=== PATIENT | male | born 1960 | race African-American/Black ===

== ENCOUNTER 2022-11-16 00:09 | Inpatient (IN) | payer BC ==
[~2022-11-16] VITALS: Ht 175.3 cm; Wt 124.7 kg
[2022-11-16 03:29] LABS: BASOPHILS % 1.4 % (0.0-2.0); EOSINOPHILS % 0.6 % (0.0-5.0); HEMATOCRIT. 42.4 % (42.0-52.0); HEMOGLOBIN. 14.3 g/dL (14.0-18.0); LYMPHOCYTES % 44.1 % (20.0-50.0); MEAN CORPUSCULAR HEMOGLOBIN 28.2 pg (28.0-32.0); MEAN CORPUSCULAR VOLUME 83.6 fL (80.0-94.0); MEAN PLATELET VOLUME 8.5 fl (7.4-10.4); NEUTROPHILS % 43.9 % (40.0-76.0); PLATELET 228 x1000/uL (130-400); RED BLOOD CELL COUNT 5.07 mill/uL (4.7-6.1); RED CELL DISTRIBUTION WIDTH 15.2 % (11.6-14.6)
[2022-11-16 03:44] LABS: CHLORIDE 108 mEq/L (98-107)
[2022-11-16] MEDS ORDERED: ASPIRIN 81MG TABLET PO NR (04:15)
[2022-11-16 05:28] LABS: ETHANOL BLOOD 199 mg/dL
[2022-11-16 06:20] LABS: CLARITY URINE CLEAR (CLEAR); COLOR URINE YELLOW (YELLOW); KETONES URINE TRACE (NEGATIVE); LEUKOCYTE ESTERASE URINE NEGATIVE (NEGATIVE); NITRITE URINE NEGATIVE (NEGATIVE); OCCULT BLOOD URINE NEGATIVE (NEGATIVE); PH URINE 5.5 (4.5-8.0); PROTEIN URINE 2+ (NEGATIVE); SPECIFIC GRAVITY URINE 1.021 (1.005-1.030)
[2022-11-16 06:52] LABS: *AMPHETAMINES SCREEN URINE NEGATIVE (NEGATIVE); *BARBITURATES SCREEN URINE NEGATIVE (NEGATIVE); *BENZODIAZEPINES SCREEN URINE NEGATIVE (NEGATIVE); *COCAINE SCREEN URINE NEGATIVE (NEGATIVE); CANNABINOID URINE SCREEN NEGATIVE (NEGATIVE); METHADONE URINE SCREEN NEGATIVE (NEGATIVE); OPIATES URINE SCREEN NEGATIVE (NEGATIVE); PHENCYCLIDINE URINE SCREEN NEGATIVE (NEGATIVE)
[2022-11-16] MEDS ORDERED: NICARDIPINE 100MCG/ML 10ML VIAL (CATH LAB) IV ONE (09:00)
[2022-11-16] MEDS ORDERED: NITROGLYCERIN 50MCG/ML 10ML VIAL (CATH LAB) IV ONE (09:00)
[2022-11-16] MEDS ORDERED: ACETAMINOPHEN 325MG TABLET PO PRN ×3 (10:30→16:00)
[2022-11-16] MEDS ORDERED: CLONIDINE 0.1MG TABLET PO PRN (10:30)
[2022-11-16] MEDS ORDERED: ONDANSETRON HCL 4MG/2ML INJ IV PRN (10:30)
[2022-11-16] MEDS ORDERED: IPRATROPIUM/ALBUTEROL 0.5-3(2.5)MG/3ML NEB HHN PRN (10:30)
[2022-11-16] MEDS ORDERED: DOCUSATE SODIUM 100MG CAPSULE PO PRN (10:30)
[2022-11-16 12:00] VITALS: BP_SYST 138; BP_DIAS 94; BP_DIAS 97
[2022-11-16] MEDS ORDERED: DEXTROSE 50% WATER 50ML SYRINGE IV PRN (12:45)
[2022-11-16] MEDS: ENOXAPARIN 40MG/0.4ML SYR SUBCUT SCH (12:55)
[2022-11-16] MEDS ORDERED: HEPARIN 1000 UNITS/ML 10ML ONE (14:17)
[2022-11-16] MEDS ORDERED: IODIXANOL 320MG/ML 100 ML BOTTLE IV ONE (14:17)
[2022-11-16] MEDS ORDERED: MIDAZOLAM HCL 2 MG/2 ML VIAL ONE (14:18)
[2022-11-16] MEDS ORDERED: VERAPAMIL HCL 2.5 MG/1 ML 2ML VIAL IV ONE (14:18)
[2022-11-16] MEDS ORDERED: FENTANYL CITRATE/PF 50MCG/ML 2ML VIAL ONE (14:18)
[2022-11-16] MEDS ORDERED: DIPHENHYDRAMINE 50MG/ML VIAL ONE (14:18)
[2022-11-16] MEDS ORDERED: LIDOCAINE HCL/PF 2% 20MG/ML 5 ML/VIAL ONE (14:18)
[2022-11-16] MEDS ORDERED: HYDRALAZINE 20MG/ML VIAL ONE (14:53)
[2022-11-16] MEDS ORDERED: LABETALOL HCL 5MG/ML VIAL 20ML IV ONE (15:04)
[2022-11-16] MEDS ORDERED: ATROPINE SULFATE 1MG/10ML SYR IV PRN (16:00)
[2022-11-16] MEDS: AMLODIPINE 10MG TABLET PO SCH ×2 (16:00→19:48)
[2022-11-16 16:36] LABS: T4 FREE 0.83 ng/dL (0.76-1.46)
[2022-11-16] MEDS: BLOOD SUGAR DIAGNOSTIC STRIP TEST SCH ×2 (16:40→23:08)
[2022-11-16 16:42] LABS: CREATINE KINASE MB FRACTION 1.5 ng/mL (0.5-3.6)
[2022-11-16] MEDS ORDERED: LISI20TA31 PO (16:50)
[2022-11-16] MEDS ORDERED: CARV6.2548 PO (16:50)
[2022-11-16] MEDS: CARVEDILOL 6.25 MG TABLET PO SCH ×2 (17:00→19:50)
[2022-11-16] MEDS ORDERED: CARVEDILOL 6.25 MG TABLET PO SCH (17:00)
[2022-11-16] MEDS: INSULIN LISPRO 100 UNITS/ML SUBCUT SCH ×2 (17:06→23:14)
[2022-11-16] MEDS ORDERED: ATORVASTATIN CALCIUM 40MG TABLET PO SCH (21:00)
[2022-11-16] MEDS ORDERED: TEMAZEPAM 15MG CAPSULE PO PRN (22:45)
[2022-11-17] VITALS: BP 115/75
[2022-11-17 00:13] LABS: CREATINE KINASE MB FRACTION 1.4 ng/mL (0.5-3.6)
[2022-11-17 04:00] VITALS: BP 146/92
[2022-11-17] MEDS: BLOOD SUGAR DIAGNOSTIC STRIP TEST SCH ×2 (06:41→11:40)
[2022-11-17 07:02] LABS: HEMATOCRIT. 38.7 % (42.0-52.0); HEMOGLOBIN. 12.9 g/dL (14.0-18.0); MEAN CORPUSCULAR HEMOGLOBIN 27.8 pg (28.0-32.0); MEAN CORPUSCULAR VOLUME 83.8 fL (80.0-94.0); MEAN PLATELET VOLUME 9.1 fl (7.4-10.4); PLATELET 182 x1000/uL (130-400); RED BLOOD CELL COUNT 4.62 mill/uL (4.7-6.1); RED CELL DISTRIBUTION WIDTH 14.7 % (11.6-14.6)
[2022-11-17] MEDS: INSULIN LISPRO 100 UNITS/ML SUBCUT SCH (07:10)
[2022-11-17 07:16] LABS: CHLORIDE 103 mEq/L (98-107)
[2022-11-17 08:00] VITALS: BP 163/99
[2022-11-17] MEDS ORDERED: ASPIRIN 81MG TABLET PO SCH (09:00)
[2022-11-17] MEDS ORDERED: SPIRONOLACTONE 25MG TABLET PO SCH (09:00)
[2022-11-17] MEDS ORDERED: LISINOPRIL 20MG TABLET PO SCH (09:00)
[2022-11-17 09:04] VITALS: BP 163/99
[2022-11-17] MEDS: CARVEDILOL 6.25 MG TABLET PO SCH (09:06)
[2022-11-17] MEDS: AMLODIPINE 10MG TABLET PO SCH (09:07)
[2022-11-17 10:05] VITALS: BP 163/99
[2022-11-17 10:06] LABS: PLATELET ESTIMATE NORMAL
[2022-11-17] MEDS: ENOXAPARIN 40MG/0.4ML SYR SUBCUT SCH (11:00)
== END 2022-11-17 12:15 | disposition home or self-care (01) | DRG 281 ==
LOC: ER 00:09 → 7EST 06:39 → ENRESERV 08:36 → 7EST 10:26
PROVIDERS: ADMIT Internal Medicine Pulmonary Disease; ATTEND Internal Medicine Pulmonary Disease
PROC: 4A023N7 Measurement of Cardiac Sampling and Pressure, Left Heart, Percutaneous Approach (ICD-10-PCS; principal; 2022-11-16)
PROC: B211YZZ Fluoroscopy of Multiple Coronary Arteries using Other Contrast (ICD-10-PCS; 2022-11-16)
DX: I25.10 Atherosclerotic heart disease of native coronary artery without angina pectoris (principal); I21.A1 Myocardial infarction type 2; I16.1 Hypertensive emergency; I11.0 Hypertensive heart disease with heart failure; I50.9 Heart failure, unspecified; G47.33 Obstructive sleep apnea (adult) (pediatric); E11.9 Type 2 diabetes mellitus without complications; E78.5 Hyperlipidemia, unspecified; F10.10 Alcohol abuse, uncomplicated; Z98.84 Bariatric surgery status; Z86.73 Personal history of transient ischemic attack (TIA), and cerebral infarction without residual deficits; Z79.899 Other long term (current) drug therapy; Z91.199 Patient's noncompliance with other medical treatment and regimen due to unspecified reason; Y90.6 Blood alcohol level of 120-199 mg/100 ml
CPT/HCPCS: 36415; 71045; 80048; 80053; 80061; 80305; 80307; 80320; 80329; 81003; 82550; 82553; 82962; 83036; 83735; 83880; 84439; 84443; 84484; 85025; 93005; 93306; 93458; 99285; C1769; C1887; C1893; J0360; J1200; J1644; J1650; J2250; J3010; J3490; Q9967; G0480

== ENCOUNTER 2023-01-14 22:01 | Emergency (ER) | payer BC ==
[~2023-01-14] VITALS: Ht 177.8 cm; Wt 127.0 kg
[~2023-01-14 22:01] MED LIST: CARV6.2548 PO; LISI20TA31 PO
[2023-01-14 22:04] VITALS: O2SAT 98
[2023-01-15 00:09] LABS: BASOPHILS % 0.8 % (0.0-2.0); HEMATOCRIT. 40.2 % (42.0-52.0); HEMOGLOBIN. 12.7 g/dL (14.0-18.0); LYMPHOCYTES % 45.8 % (20.0-50.0); MEAN CORPUSCULAR HEMOGLOBIN 26.4 pg (28.0-32.0); MEAN CORPUSCULAR VOLUME 83.1 fL (80.0-94.0); MEAN PLATELET VOLUME 8.4 fl (7.4-10.4); MONOCYTES % 12.1 % (2.0-8.0); NEUTROPHILS % 40.3 % (40.0-76.0); PLATELET 184 x1000/uL (130-400); RED BLOOD CELL COUNT 4.84 mill/uL (4.7-6.1); RED CELL DISTRIBUTION WIDTH 16.3 % (11.6-14.6)
[2023-01-15 00:34] LABS: CHLORIDE 107 mEq/L (98-107)
[2023-01-15 03:55] VITALS: BP 156/96; PULSE 77; RESP 18; TEMP 98.6
== END 2023-01-15 03:57 | disposition home or self-care (01) ==
LOC: ER 22:01
DX: F43.9 Reaction to severe stress, unspecified (principal); R07.89 Other chest pain; I25.10 Atherosclerotic heart disease of native coronary artery without angina pectoris
CPT/HCPCS: 36415; 71045; 80053; 84484; 85025; 93005; 99285

== ENCOUNTER 2023-06-15 00:32 | Emergency (ER) | payer BC, OTHER ==
[~2023-06-15] VITALS: Ht 190.5 cm; Wt 118.0 kg
[2023-06-15 00:50] VITALS: BP 114/80; PULSE 62; RESP 18; TEMP 98.2; O2SAT 98
[2023-06-15] MEDS ORDERED: HYDROCODONE/ACETAMINOPHEN 5/325MG TABLET PO ONE (02:15)
[2023-06-15 02:53] LABS: BASOPHILS % 1.5 % (0.0-2.0); EOSINOPHILS % 0.5 % (0.0-5.0); HEMATOCRIT. 41.9 % (42.0-52.0); HEMOGLOBIN. 14.2 g/dL (14.0-18.0); MEAN CORPUSCULAR HEMOGLOBIN 28.3 pg (28.0-32.0); MEAN CORPUSCULAR HGB CONC 33.9 g/dL (31.0-37.0); MEAN CORPUSCULAR VOLUME 83.6 fL (80.0-94.0); MEAN PLATELET VOLUME 8.2 fl (7.4-10.4); MONOCYTES % 9.8 % (2.0-8.0); NEUTROPHILS % 68.2 % (40.0-76.0); PLATELET 262 x1000/uL (130-400); RED BLOOD CELL COUNT 5.02 mill/uL (4.7-6.1); RED CELL DISTRIBUTION WIDTH 16.1 % (11.6-14.6); WHITE BLOOD COUNT 6.7 x1000/uL (4.5-11.0)
[2023-06-15 03:04] LABS: CARBON DIOXIDE 26 mEq/L (21-32); CHLORIDE 100 mEq/L (98-107); CREATININE 1.4 mg/dL (0.6-1.3); GLUCOSE 83 mg/dL (70-105); POTASSIUM 4.4 mEq/L (3.5-5.1); SODIUM 141 mEq/L (136-145); UREA NITROGEN BLOOD 12 mg/dL (9-23)
[2023-06-15] MEDS ORDERED: IBUP-2029 MT (05:28)
== END 2023-06-15 08:18 | disposition home or self-care (01) ==
LOC: ER 00:32
DX: F10.129 Alcohol abuse with intoxication, unspecified (principal); M54.2 Cervicalgia; F19.90 Other psychoactive substance use, unspecified, uncomplicated; I48.91 Unspecified atrial fibrillation; Y90.9 Presence of alcohol in blood, level not specified
CPT/HCPCS: 36415; 80048; 85025; 99284